=== PATIENT | female | born 1995 | race Caucasian/White ===

== ENCOUNTER 2018-12-12 14:20 | Emergency (ER) | payer OTHER ==
[~2018-12-12] VITALS: Ht 157.5 cm; Wt 51.1 kg
[2018-12-12 14:24] VITALS: BP 123/70; PULSE 97; RESP 20; Ht 157.5 cm; Wt 51.1 kg
[2018-12-12] MEDS ORDERED: HC30CR25 TOP (16:21)
--- NOTE | 2018-12-12 16:33 | ERD ---
ER Documentation Chief Complaint Chief Complaint Complains of generalized rash from shrimp HPI 23-year-old female patient with no significant past medical history presents the ED for hives that started intermittently for the last 2 weeks. States that is itchy. Denies any pain with rash. States that she is applying topical anti- itch cream, [id number] as well as Benadryl with slight relief of her symptoms. Reports that she ate shrimp about 2 weeks ago, felt like her throat was itchy but that has resolved. Reports that the rashes on the chest and arms. Denies any tongue or lip swelling. Denies any fever, chills, nausea, vomiting, diarrhea, neck stiffness, difficulty breathing, shortness of breath, chest pain. ROS All systems reviewed and are negative except as per history of present illness. Medications Home Meds Active Scripts Hydrocortisone* Topical (Hydrocortisone* Topical) 2.5%-28.3 Gm Cream..g., 1 APPLIC TOP BID, #1 TUB Prov:ROSS MAHMOOD PA-C 12/12/18 Allergies Allergies: Coded Allergies: shrimp (Verified Allergy, Unknown, rash, 12/12/18) Uncoded Allergies: BRAZIL NUTS (Allergy, Unknown, Rash, 12/12/18) PMhx/Soc Medical and Surgical Hx: pt denies Medical Hx, pt denies Surgical Hx Hx Alcohol Use: No Hx Substance Use: No Hx Tobacco Use: No Smoking Status: Never smoker FmHx Family History: No diabetes, No coronary disease Physical Exam Vitals Vital Signs Date Temp Pulse Resp B/P (MAP) Pulse Ox O2 O2 Flow FiO2 Time Delivery Rate 12/12/18 97.8 97 20 123/70 100 14:24 (87) Physical Exam Const: [id number]-[id number], well-nourished. In no acute distress. Head: Atraumatic, normocephalic Eyes: Normal Conjunctiva without injection. No purulent discharge. PERRL. EOMI ENT: Normal external ear. Ear canal without erythema. Tympanic membrane pearly rivera without effusion or bulging. Nasal canal clear with normal turbinates. Moist oropharynx without tonsillar exudates. Non-erythematous pharynx. Uvula midline. No drooling. No trismus. No angioedema. Neck: Full range of motion. No meningismus. No cervical lymphadenopathy. Resp: Clear to auscultation bilaterally. No wheezing, rhonchi, rales, or crackles. No accessory muscle use. No retractions. Cardio: Regular rate and rhythm. No murmurs, rubs or gallops. Abd: Soft, non tender, non distended. Normal bowel sounds. No palpable masses. No rebound tenderness. No guarding. Skin: No petechiae or purpura. Few of a wheel-like lesions noted on the anterior chest. No vesicles noted. Back: No midline tenderness. No CVA tenderness. Ext: No cyanosis, or edema. Neur: Awake and alert. Psych: Normal Mood and Affect Procedures/MDM 23-year-old female patient with no significant past medical history presents to ED complaining of a rash that started intimately for the last 2 months radiation. Patient is afebrile and nontoxic-appearing. She likely had a urticaria that has mostly resolved. Low suspicion for anaphylaxis, scabies, SJS/TEN, TSS, Lyme's Disease, syphilis, RMSF, shingles, disseminated gonorrhea chlamydia, DIC, TTP, ITP, erythema multiforme, sepsis, cellulitis, necrotizing fasciitis, gangrene, meningococcemia, allergic contact dermatitis, urticaria, eczema, tinea infection, or other emergent conditions. Diagnosis: Rash and other nonspecific skin eruption Discharge medications: Hydrocortisone topical Follow up with md urologist for further evaluation and treatment. Patient should also obtain allergy testing and avoid eating shrimp. Instructed patient to return to the ED sooner for any worsening symptoms. Patient's questions were answered. Patient is hemodynamically stable. Patient understood and agreed with discharge plan. Patient discharged stable. Disclaimer: Inadvertent spelling and grammatical errors are likely due to EHR/dictation software use and do not reflect on the overall quality of patient care. Also, please note that the electronic time recorded on this note does not necessarily reflect the actual time of the patient encounter. Departure Diagnosis: Primary Impression: Rash and other nonspecific skin eruption Condition: Stable Patient Instructions: Self-Care for Skin Rashes, Hives Referrals: COMM[facility]ITY CLINICS YOU HAVE RECEIVED A MEDICAL SCREENING EXAM AND THE RESULTS INDICATE THAT YOU DO NOT HAVE A CONDITION THAT REQUIRES URGENT TREATMENT IN THE EMERGENCY DEPARTMENT. FURTHER EVALUATION AND TREATMENT OF YOUR CONDITION CAN WAIT UNTIL YOU ARE SEEN IN YOUR DOCTORS OFFICE WITHIN THE NEXT 1-2 DAYS. IT IS YOUR RESPONSIBILITY TO MAKE AN APPOINTMENT FOR FOLOW-UP CARE. IF YOU HAVE A PRIMARY DOCTOR --you should call your primary doctor and schedule an appointment IF YOU DO NOT HAVE A PRIMARY DOCTOR YOU CAN CALL OUR PHYSICIAN REFERRAL HOTLINE AT IF YOU CAN NOT AFFORD TO SEE A PHYSICIAN YOU CAN CHOSE FROM THE FOLLOWING [facility] [address] [facility] [address] [facility] [address] [facility] [address] [facility] [address] [facility]. [facility] [address] [facility]. [facility] YOU HAVE RECEIVED A MEDICAL SCREENING EXAM AND THE RESULTS INDICATE THAT YOU DO NOT HAVE A CONDITION THAT REQUIRES URGENT TREATMENT IN THE EMERGENCY DEPARTMENT. FURTHER EVALUATION AND TREATMENT OF YOUR CONDITION CAN WAIT UNTIL YOU ARE SEEN IN YOUR DOCTORS OFFICE WITHIN THE NEXT 1-2 DAYS. IT IS YOUR RESPONSIBILITY TO MAKE AN APPOINTMENT FOR FOLOW-UP CARE. IF YOU HAVE A PRIMARY DOCTOR --you should call your primary doctor and schedule and appointment IF YOU DO NOT HAVE A PRIMARY DOCTOR YOU CAN CALL OUR PHYSICIAN REFERRAL HOTLINE AT . IF YOU CAN NOT AFFORD TO SEE A PHYSICIAN YOU CAN CHOSE FROM THE FOLLOWING [facility]: [facility] [address] [place] [address] [facility] [address] [place] [address] [facility] [address] [place] [address] [facility] URGENT CARE/SPECIALTIES Additional Instructions: Call your md urologist TOMORROW for an appointment during the next 2-3 days.See the doctor sooner or return here if your condition worsens before your appointment time - tongue/lip swelling, fever, difficulty breathing, etc. ROSS MAHMOOD PA-C Dec 12, 2018 16:33
== END 2018-12-12 16:32 | disposition home or self-care (01) ==
LOC: FTE 14:20
DX: R21 Rash and other nonspecific skin eruption (principal)
CPT/HCPCS: 99283